=== PATIENT | female | born 1985 | race American Indian/Alaskan Native ===

== ENCOUNTER 2016-08-19 22:30 | Outpatient (CLI) | payer SELFPAY ==
[2016-08-19] MEDS ORDERED: LACTATED RINGERS 1,000 ML IV ONE (22:37)
[2016-08-19 22:45] VITALS: BP 124/56
[2016-08-19 23:18] LABS: Bacteria,Urine 2+ /HPF (Negative); Bilirubin,Urine NEG (Negative); Blood,Urine NEG (Negative); Ketones,Urine NEG (Negative); Leukocyte Esterase,Urine MOD (Negative); Mucus,Urine 3+ /HPF; Nitrite,Urine NEG (Negative); Protein,Urine <15 mg/dL mg/dL (Negative); Urobilinogen,Urine < 2.0 mg/dL (<2.0)
== END 2016-08-19 23:40 | disposition home or self-care (01) ==
LOC: TRG 22:30
PROVIDERS: ATTEND Obstetrics & Gynecology
DX: O47.02 False labor before 37 completed weeks of gestation, second trimester (principal); Z3A.20 20 weeks gestation of pregnancy
CPT/HCPCS: 81001

== ENCOUNTER 2016-08-27 14:53 | Outpatient (CLI) | payer SELFPAY ==
[2016-08-27] MEDS ORDERED: LACTATED RINGERS 500 ML IV ONE (16:06)
[2016-08-27 16:36] LABS: Bacteria,Urine 1+ /HPF (Negative); Bilirubin,Urine NEG (Negative); Blood,Urine SM (Negative); Ketones,Urine 80 mg/dL (Negative); Leukocyte Esterase,Urine TR (Negative); Mucus,Urine 3+ /HPF; Nitrite,Urine NEG (Negative)
[2016-08-27] MEDS ORDERED: ceFAZolin 2 GM in NACL 0.9% 100 ML IV ONE (17:13)
[2016-08-27] MEDS ORDERED: LACTATED RINGERS 1,000 ML IV ONE (17:13)
[2016-08-27] MEDS ORDERED: TYLENOL PO ONE (17:14)
[2016-08-27 17:19] VITALS: BP 112/57
[2016-08-27 20:31] LABS: Hematocrit 30.3 % (30.3-42.9); Hemoglobin 10.3 gm/dl (10.1-14.3); Mean Corpuscular HGB Conc 34 % (30-34); Mean Corpuscular Hemoglobin 30 pg (28-32); Mean Corpuscular Volume 87 fl (79-97); Platelet Count 130 K/mm3 (140-440); Red Blood Count 3.49 M/mm3 (3.65-5.03); Red Cell Distribution Width 13.1 % (13.2-15.2)
== END 2016-08-27 21:10 | disposition home or self-care (01) ==
LOC: TRG 14:53
PROVIDERS: ATTEND Obstetrics & Gynecology
DX: O47.02 False labor before 37 completed weeks of gestation, second trimester (principal); Z3A.21 21 weeks gestation of pregnancy
CPT/HCPCS: 36415; 81001; 85027; 87086; 96360; 96361; 96365; J0690; J7120; 87076; 87186

== ENCOUNTER 2016-10-30 14:08 | Outpatient (CLI) | payer MEDICAID ==
[2016-10-30] MEDS ORDERED: LACTATED RINGERS 500 ML IV ONE (14:46)
[2016-10-30] MEDS ORDERED: LACTATED RINGERS 1,000 ML IV ONE (15:00)
[2016-10-30 15:28] LABS: Bacteria,Urine 1+ /HPF (Negative); Bilirubin,Urine NEG (Negative); Blood,Urine NEG (Negative); Ketones,Urine TR mg/dL (Negative); Leukocyte Esterase,Urine SM (Negative); Mucus,Urine 3+ /HPF; Nitrite,Urine NEG (Negative); Urobilinogen,Urine < 2.0 mg/dL (<2.0)
[2016-10-30] MEDS ORDERED: TYLENOL PO ONE (16:00)
[2016-10-30] MEDS ORDERED: ZOFRAN IV ONE (16:00)
[2016-10-30 16:58] VITALS: BP 116/66
== END 2016-10-30 17:30 | disposition home or self-care (01) ==
LOC: TRG 14:08
PROVIDERS: ATTEND Obstetrics & Gynecology
DX: Z34.93 Encounter for supervision of normal pregnancy, unspecified, third trimester (principal); Z3A.31 31 weeks gestation of pregnancy
CPT/HCPCS: 59025; 81001; 96360; 96374; J2405; J7120

== ENCOUNTER 2016-12-13 00:40 | Outpatient (CLI) | payer MEDICAID ==
[2016-12-13 00:55] VITALS: BP 124/66
== END 2016-12-13 01:44 | disposition home or self-care (01) ==
LOC: TRG 00:40
PROVIDERS: ATTEND Obstetrics & Gynecology Gynecology
DX: O47.1 False labor at or after 37 completed weeks of gestation (principal); Z3A.38 38 weeks gestation of pregnancy

== ENCOUNTER 2016-12-20 03:38 | Outpatient (CLI) | payer MEDICAID ==
[2016-12-20 03:59] VITALS: BP 118/66
[2016-12-20 05:11] LABS: Bilirubin,Urine NEG (Negative); Blood,Urine NEG (Negative); Ketones,Urine NEG (Negative); Leukocyte Esterase,Urine TR (Negative); Mucus,Urine FEW /HPF; Nitrite,Urine NEG (Negative); Protein,Urine <15 mg/dL mg/dL (Negative); Urobilinogen,Urine < 2.0 mg/dL (<2.0)
[2016-12-20] MEDS ORDERED: VISTARIL PO ONE (05:32)
== END 2016-12-20 05:40 | disposition home or self-care (01) ==
LOC: TRG 03:38
PROVIDERS: ATTEND Obstetrics & Gynecology
DX: O47.1 False labor at or after 37 completed weeks of gestation (principal); Z3A.39 39 weeks gestation of pregnancy
CPT/HCPCS: 59025; 81001; Q0177

== ENCOUNTER 2016-12-24 11:51 | Outpatient (CLI) | payer MEDICAID ==
[2016-12-24 12:06] VITALS: BP 130/82
== END 2016-12-24 12:50 | disposition home or self-care (01) ==
LOC: TRG 11:51
PROVIDERS: ATTEND Obstetrics & Gynecology Gynecology
DX: O47.1 False labor at or after 37 completed weeks of gestation (principal); Z3A.39 39 weeks gestation of pregnancy

== ENCOUNTER 2016-12-30 00:53 | Outpatient (CLI) | payer MEDICAID ==
--- NOTE | 2016-12-30 07:51 | Ultrasound Report ---
ULTRASOUND BIOPHYSICAL PROFILE: History: well being, decreased movement Technique: Transabdominal ultrasound with Doppler interrogation. 2 - breathing movements 2 - movements 2 - posture and tone 2 - Qualitative amniotic fluid volume 8 - TOTAL SCORE OF POSSIBLE 8 Heart Rate (bpm) 131
[2017-01-03 21:40] VITALS: BP 127/74
== END 2016-12-30 03:07 | disposition home or self-care (01) ==
LOC: TRG 00:53
PROVIDERS: ATTEND Obstetrics & Gynecology
DX: O62.9 Abnormality of forces of labor, unspecified (principal); O36.8130 Decreased fetal movements, third trimester, not applicable or unspecified; O26.893 Other specified pregnancy related conditions, third trimester; O48.0 Post-term pregnancy; Z3A.41 41 weeks gestation of pregnancy
CPT/HCPCS: 59025; 76819

== ENCOUNTER 2017-01-01 20:36 | Inpatient (IN) | payer MEDICAID ==
[2017-01-01] MEDS ORDERED: CERVIDIL VG ONE (22:16)
[2017-01-01] MEDS ORDERED: BRETHINE SUB-Q PRN (22:16)
[2017-01-01] MEDS ORDERED: BRETHINE IVP PRN (22:16)
[2017-01-01] MEDS ORDERED: ePHEDrine SULFATE IV PRN (22:16)
[2017-01-01] MEDS ORDERED: ZOFRAN IV PRN (22:16)
[2017-01-01] MEDS ORDERED: XYLOCAINE 2% INFILTRATI ONE (22:16)
[2017-01-01] MEDS ORDERED: SUBLIMAZE IV PRN (22:16)
[2017-01-01] MEDS ORDERED: AMBIEN PO PRN (22:16)
[2017-01-01] MEDS ORDERED: MINERAL OIL PO PRN (22:16)
[2017-01-01] MEDS ORDERED: PHENERGAN PO PRN (22:16)
[2017-01-01] MEDS ORDERED: NARCAN 0.4 MG/1 ML IV PRN (22:16)
[2017-01-01] MEDS ORDERED: POLYCILLIN/NS 2 GM/100 ML 2 GM/100 ML BAG IV ONE (22:16)
--- NOTE | 2017-01-01 22:22 | History and Physical Report ---
History of Present Illness Date of examination: 01/01/17 Date of admission: 01/01/17 20:36 Chief complaint: Induction of labor History of present illness: Pt is a 31yo BF EDC 12/25/16; EGA 41 0/7 weeks presents for cervidel induction of labor. Pt received care at [facility] but records are not available and GBS is unknown. Past History Past Medical History: no pertinent history Past Surgical History: no surgical history Family/Genetic History: none Social history: no significant social history, single - Obstetrical History Expected Date of Delivery: 12/25/16 Actual Gestation: 41 Week(s) 1 Day(s) : 4 Medications and Allergies Allergies Allergy/AdvReac Type Severity Reaction Status Date / Time No Known Allergies Allergy Verified 06/28/14 18:54 Home Medications Medication Instructions Recorded Confirmed Last Taken Type Nitrofurantoin [place]/M-Cryst 100 mg PO Q12HR #14 capsule 05/02/16 Unknown Rx [Macrobid CAP] Vit No.130/Iron/FA 1 each PO QDAY #30 tablet 05/02/16 Unknown Rx [ Tablet] Cephalexin [Keflex] 500 mg PO Q12HR #14 cap 08/27/16 Unknown Rx Active Meds: Active Medications Butorphanol Tartrate (Stadol) 2 mg IV Q2H PRN PRN Reason: Pain , Severe (7-10) Dinoprostone (Cervidil) 10 mg VG ONCE ONE Stop: 01/01/17 22:17 Ephedrine Sulfate (Ephedrine Sulfate) 10 mg IV Q2M PRN PRN Reason: Hypotension Stop: 01/01/17 22:21 Fentanyl (Sublimaze) 100 mcg IV Q2H PRN PRN Reason: Labor Pain Ampicillin Sodium (Polycillin/Ns 1 Gm/50 Ml) 1 gm in 50 mls @ 100 mls/hr IV Q4HR JESSICA PRN Reason: Protocol Ampicillin Sodium (Polycillin/Ns 2 Gm/100 Ml) 2 gm in 100 mls @ 100 mls/hr IV ONCE ONE PRN Reason: Protocol Stop: 01/01/17 23:15 Lactated Ringer's (Lactated Ringers) 1,000 mls @ 125 mls/hr IV DIRECT JESSICA Lidocaine (Xylocaine 2%) 20 ml INFILTRATI ONCE ONE Stop: 01/01/17 22:17 Mineral Oil (Mineral Oil) 30 ml PO QHS PRN PRN Reason: Constipation Review of Systems All systems: negative - Vital Signs Vital signs: Vital Signs Pulse Pulse Ox 81 99 01/01/17 20:59 01/01/17 20:59 Temp Pulse Resp BP Pulse Ox 98.8 F 80 18 132/81 98 01/01/17 21:09 01/01/17 21:34 01/01/17 21:09 01/01/17 21:09 01/01/17 21:34 - Physical Exam Breasts: Positive: deferred Cardiovascular: Regular rate Lungs: Positive: Clear to auscultation Abdomen: Positive: normal appearance Genitourinary (Female): Positive: normal external genitalia Vagina: Positive: normal moisture Uterus: Positive: enlarged Extremities: Positive: normal - Obstetrical FHR: category 1 Uterine Contraction Monitor Mode: External Cervical Dilatation: 1 Cervical Effacement Percentage: 50 station: -3 Uterine Contraction Pattern: Absent Results Result Diagrams: 01/01/17 21:50 All other labs normal. Assessment and Plan - Patient Problems (1) 41 weeks gestation of Onset Date: 01/01/17 Current Visit: Yes Status: Acute Plan to address problem: A: IUP @ 41 0/7 weeks Unknown GBS P: Admit to L&D for cervidel/pitocin induction of labor IV Ampicillin Obtain records
[2017-01-01] MEDS ORDERED: PITOCin/NS 30 UNIT/500ML 30 UNITS/500 ML BAG IV SCH (23:00)
[2017-01-01] MEDS ORDERED: PITOCin/NS 20 UNIT/1000ML DRIP 20 UNITS/1,000 ML BAG IV SCH (23:00)
[2017-01-02 00:47] LABS: Hematocrit 31.6 % (30.3-42.9); Hemoglobin 10.3 gm/dl (10.1-14.3); Mean Corpuscular HGB Conc 33 % (30-34); Mean Corpuscular Hemoglobin 28 pg (28-32); Mean Corpuscular Volume 86 fl (79-97); Red Blood Count 3.68 M/mm3 (3.65-5.03); Red Cell Distribution Width 13.7 % (13.2-15.2)
[2017-01-02 01:08] LABS: Platelet Count 98 K/mm3 (140-440)
[2017-01-02 01:53] LABS: HIV-1 Antigen p24 Non React (Non React); HIVR-1/2 Ab Non React (Non React)
[2017-01-02] MEDS ORDERED: POLYCILLIN/NS 1 GM/50 ML 1 GM/50 ML BAG IV SCH (02:18)
[2017-01-02] MEDS: LACTATED RINGERS 1,000 ML IV SCH ×3 (07:26→19:50)
--- NOTE | 2017-01-02 12:36 | Progress Note ---
Assessment and Plan - Patient Problems (1) 41 weeks gestation of Onset Date: 01/01/17 Current Visit: Yes Status: Acute Plan to address problem: A: IUP @ 41 1/7 weeks Unknown GBS P: Continue with cervidel/pitocin induction of labor IV Ampicillin Subjective - Subjective Date of service: 01/02/17 Principal diagnosis: IUP @ 41 1/7 weeks Interval history: Pt is feeling well without complaints. Received cervidel x 1. She denies contractions, bleeding or ROM. +FM Patient reports: movement normal, no new complaints, no loss of fluid, no vaginal bleeding, no contractions Objective - Vital Signs Vital Signs: Vital Signs - 12hr 01/02/17 08:52 Temperature 97.6 F Pulse Rate 68 Respiratory 16 Rate Blood Pressure 139/82 O2 Sat by Pulse 99 Oximetry - Exam Breasts: deferred Abdomen: Present: normal appearance Uterus: Present: normal FHR: category 1 Uterine Contraction Monitor Mode: External Cervical Dilatation: 1 Cervical Effacement Percentage: 50 station: -3 Uterine Contraction Pattern: Irregular - Labs Labs: Abnormal Labs 01/01/17 21:50 Plt Count 98 L Laboratory Results - last 24 hr 01/01/17 01/01/17 01/02/17 21:50 21:50 02:13 WBC 8.0 RBC 3.68 Hgb 10.3 Hct 31.6 MCV 86 MCH 28 MCHC 33 RDW 13.7 Plt Count 98 L Hep Bs Antigen HIV 1&2 Antibody Rapid Non react HIV P24 Antigen Non react Rubella IgG Antibody Immune Blood Type O POSITIVE Antibody Screen Negative 01/02/17 02:13 WBC RBC Hgb Hct MCV MCH MCHC RDW Plt Count Hep Bs Antigen Non-reactive HIV 1&2 Antibody Rapid HIV P24 Antigen Rubella IgG Antibody Blood Type Antibody Screen
[2017-01-02] MEDS ORDERED: CERVIDIL VG ONE (19:30)
[2017-01-03] MEDS: LACTATED RINGERS 1,000 ML IV SCH (05:44)
--- NOTE | 2017-01-03 07:24 | Progress Note ---
Assessment and Plan - Patient Problems (1) 41 weeks gestation of Onset Date: 01/01/17 Current Visit: Yes Status: Acute Plan to address problem: A: IUP @ 41 2/7 weeks Unknown GBS P: Continue with cervidel/pitocin induction of labor IV Ampicillin Obtain records Subjective - Subjective Date of service: 01/03/17 Principal diagnosis: IUP @ 41 2/7 weeks Interval history: Pt is a 31yo BF EDC 12/25/16; EGA 41 2/7 weeks presents for cervidel induction of labor. Pt received cervidel x 2 and not dee. Patient reports: movement normal, no new complaints, no loss of fluid, no vaginal bleeding, no contractions Objective - Vital Signs Vital Signs: Vital Signs - 12hr 01/02/17 01/03/17 19:58 01:10 Temperature 98.4 F 98.7 F Pulse Rate 71 87 Respiratory 20 20 Rate Blood Pressure 131/85 142/86 - Exam Abdomen: Present: normal appearance Uterus: Present: normal FHR: category 1 Uterine Contraction Monitor Mode: External Cervical Dilatation: 1.5 Cervical Effacement Percentage: 50 station: -2 Uterine Contraction Pattern: Absent - Labs Labs: Abnormal Labs 01/01/17 21:50 Plt Count 98 L Laboratory Results - last 24 hr 01/01/17 01/02/17 21:50 02:13 RPR Nonreactive Hep Bs Antigen Non-reactive
[2017-01-03] MEDS ORDERED: PITOCin/NS 30 UNIT/500ML 30 UNITS/500 ML BAG IV SCH (08:00)
[2017-01-03] MEDS: PITOCin/NS 30 UNIT/500ML 30 UNITS/500 ML BAG IV SCH ×6 (08:40→13:28)
[2017-01-03] MEDS ORDERED: POLYCILLIN/NS 2 GM/100 ML 2 GM/100 ML BAG IV ONE (13:16)
[2017-01-03] MEDS: STADOL IV PRN ×2 (13:20→18:14)
[2017-01-03 18:43] LABS: Hematocrit 33.6 % (30.3-42.9); Mean Corpuscular HGB Conc 33 % (30-34); Mean Corpuscular Hemoglobin 28 pg (28-32); Mean Corpuscular Volume 85 fl (79-97); Red Blood Count 3.96 M/mm3 (3.65-5.03); Red Cell Distribution Width 13.4 % (13.2-15.2); White Blood Count 10.7 K/mm3 (4.5-11.0)
[2017-01-03 18:56] LABS: Platelet Count 94 K/mm3 (140-440)
--- NOTE | 2017-01-03 20:27 | Procedure Note ---
OB Delivery Note - Delivery Date of Delivery: 01/03/17 Surgeon: TEJA WOOTEN Estimated blood loss: 100cc - Vaginal Delivery presentation: vertex Delivery position: OA Intrapartum events: prolonged latent phase Delivery induction: cervidil Delivery augmentation: rupture of membranes, pitocin Delivery monitor: external FHT, external uterine Route of delivery: Delivery placenta: spontaneous Delivery cord: nuchal cord (x2), 3 umbilical vessels Episiotomy: none Delivery laceration: none Anesthesia: intravenous Delivery comments: Infant delivered OA, nuchal cord x 2 reduced and infant placed on Mom's chest for [id number] bonding and delayed cord clamping - Infant A at 1 minute: 8 at 5 minutes: 9 Gender: Male (3206gms)
[2017-01-03] MEDS ORDERED: PHENERGAN PR PRN (20:28)
[2017-01-03] MEDS ORDERED: TUCKS PAD TP PRN (20:28)
[2017-01-03] MEDS ORDERED: DULCOLAX PR PRN (20:28)
[2017-01-03] MEDS ORDERED: BENADRYL PO PRN (20:28)
[2017-01-03] MEDS ORDERED: MILK OF MAGNESIA PO PRN (20:28)
[2017-01-03] MEDS ORDERED: ZOFRAN IV PRN (20:28)
[2017-01-03] MEDS ORDERED: NORCO 5/325 PO PRN (20:28)
[2017-01-03] MEDS ORDERED: LANSINOH TP PRN (20:28)
[2017-01-03] MEDS ORDERED: TYLENOL PO PRN (20:28)
[2017-01-03] MEDS ORDERED: PHENERGAN PO PRN (20:28)
[2017-01-03] MEDS ORDERED: SODIUM CHLORIDE FLUSH SYRINGE 10 ML IV NR (21:00)
[2017-01-03] MEDS ORDERED: PITOCin/NS 20 UNIT/1000ML DRIP 20 UNITS/1,000 ML BAG IV SCH (21:00)
[2017-01-04] MEDS ORDERED: M-M-R II VACCINE SUB-Q ONE (06:00)
[2017-01-04] MEDS ORDERED: BOOSTRIX IM ONE (06:05)
--- NOTE | 2017-01-04 07:32 | Progress Note ---
Assessment and Plan PPD# 1 s/p -Doing well P: -Continue routine care -Anticipate discharge in 24-48 hours - Patient Problems (1) (normal spontaneous vaginal delivery) Current Visit: Yes Status: Acute Subjective - Subjective Date of service: 01/04/17 Principal diagnosis: PPD# 1 Interval history: Patient seen and examined, stable doing well. Patient reports: appetite normal, voiding normally, pain well controlled, flatus , ambulating normally, no dizzy ambulation, no nauseated : doing well Objective - Vital Signs Latest vital signs: Vital Signs Temp Pulse Resp BP Pulse Ox 01/04/17 05:18 97.5 F L 72 20 135/81 01/04/17 01:00 98 F 86 20 120/67 01/03/17 22:35 98.6 F 87 18 137/74 01/03/17 21:47 98.2 F 91 H 18 127/74 01/03/17 21:00 98.2 F 89 18 138/80 01/03/17 20:45 98.0 F 91 H 18 131/67 01/03/17 20:30 98.2 F 100 H 18 126/64 98 01/03/17 19:27 96.5 F L 80 18 132/72 96 01/03/17 07:38 97.5 F L 76 16 135/85 Intake and Output 01/03/17 01/04/17 01/04/17 22:59 06:59 14:59 Intake Total 360 Output Total 700 Balance -340 Intake: Intake, Free Water 360 Output: Urine 700 Void 700 Other: Total, Output Amount 700 # Voids Void 1 Estimated Blood Loss 100 - Exam Abdomen: Present: normal appearance, soft. Absent: distention, tenderness, guarding, rigidity Uterus: Present: fundal height below umbilicus. Absent: tenderness Extremities: Present: normal - Labs Labs: Abnormal lab results 01/03/17 Range/Units 18:25 Plt Count 94 L (140-440) K/mm3
--- NOTE | 2017-01-04 07:36 | Discharge Summary ---
Providers - Providers Date of Admission: 01/01/17 20:36 Date of discharge: 01/05/17 Attending physician: TEJA WOOTEN Primary care physician: TEJA WOOTEN Hospitalization Reason for admission: induction of labor, IUP at term Delivery: Episiotomy: none Laceration: none Other procedures: none complications: none Discharge diagnosis: IUP at term delivered [place] baby: male Condition at discharge: Good Disposition: DC-01 TO HOME OR SELFCARE - Discharge Diagnoses (1) (normal spontaneous vaginal delivery) Status: Acute Plan - Discharge Medications Prescriptions: Ibuprofen [Motrin 600 MG tab] 600 mg PO Q8H PRN #30 tablet PRN Reason: Pain Multivitamin with Iron [Multivitamins with Iron] 1 each PO DAILY #30 tablet - Provider Discharge Summary Activity: no sex for 6 weeks, no heavy lifting 4 weeks, no strenuous exercise Diet: routine Additional instructions: [] Smoking cessation referral if applicable(refer to patient education folder for contact #) [] Refer to [facility]'s [facility] Booklet Call your doctor immediately for: * Fever > 100.5 * Heavy vaginal bleeding ( >1 pad per hour) * Severe persistent headache * Shortness of breath * Reddened, hot, painful area to leg or breast * Drainage or odor from incision. * Keep incision clean and dry at all times and follow doctor's instructions regarding bathing/showering - Follow up plan Follow up: TEJA WOOTEN MD [Primary Care Provider] - 6 Weeks
[2017-01-04 08:58] LABS: Hematocrit 29.7 % (30.3-42.9); Hemoglobin 9.6 gm/dl (10.1-14.3)
[2017-01-04] MEDS: PRENATAL VITAMIN PO SCH (10:27)
[2017-01-04] MEDS: FEOSOL PO SCH ×2 (10:27→22:28)
[2017-01-04] MEDS: COLACE PO SCH ×2 (10:27→22:29)
[2017-01-04] MEDS: MOTRIN PO SCH ×3 (12:38→22:29)
[2017-01-05] MEDS: MOTRIN PO SCH ×3 (05:23→17:38)
[2017-01-05] MEDS: PRENATAL VITAMIN PO SCH (12:05)
[2017-01-05] MEDS: FEOSOL PO SCH (12:05)
[2017-01-05] MEDS: COLACE PO SCH (12:06)
[2017-01-05 20:06] VITALS: BP 133/68
== END 2017-01-05 20:36 | disposition home or self-care (01) | DRG 775 ==
LOC: LD 20:36 → OB 01-03 21:48
PROVIDERS: ADMIT Obstetrics & Gynecology; ATTEND Obstetrics & Gynecology
PROC: 3E0P7GC Introduction of Other Therapeutic Substance into Female Reproductive, Via Natural or Artificial Opening (ICD-10-PCS; 2017-01-02)
PROC: 10E0XZZ Delivery of Products of Conception, External Approach (ICD-10-PCS; principal; 2017-01-03)
PROC: 3E0234Z Introduction of Serum, Toxoid and Vaccine into Muscle, Percutaneous Approach (ICD-10-PCS; 2017-01-04)
DX: O69.81X0 Labor and delivery complicated by cord around neck, without compression, not applicable or unspecified (principal); O63.0 Prolonged first stage (of labor); Z3A.41 41 weeks gestation of pregnancy; Z37.0 Single live birth; Z23 Encounter for immunization
CPT/HCPCS: 36415; 85014; 85018; 85027; 86592; 86706; 86762; 86850; 86900; 86901; 87806; 99211; G0463; J0290; J0595; J2590; J7120